=== PATIENT | female | born 1980 | race Caucasian/White ===

== ENCOUNTER 2016-12-27 17:23 | Emergency (ER) | payer OTHER ==
[2016-12-27 17:33] VITALS: TEMP 98.4
--- NOTE | 2016-12-27 17:45 | EDPHY ---
H & P Stated Complaint: Abd pain, n/v off and on x 1 mo;neg w/u [facility] clinic Time Seen by Provider: 12/27/16 17:44 HPI/ROS: CHIEF COMPLAINT: Abdominal pain, nausea, vomiting HISTORY OF PRESENT ILLNESS: The patient presents to the ED with a chief complaint of severe abdominal pain and vomiting. The patient reportedly has a history of endometriosis. She has been dealing with intermittent severe abdominal pain for the past month. The patient is status post hysterectomy in 2010. The patient did have a pelvic ultrasound performed yesterday at her OB G[facility] office which demonstrated no evidence of a ovarian torsion but did demonstrate a small cyst. Given the patient's complaint of more generalized abdominal pain and diarrhea she was referred to the ED by her staff technologist for further evaluation of other sources of pain. The patient denies any recent antibiotic use. The patient does have a prior history of appendectomy when she was 10. The patient has no history of diverticulosis or diverticulitis. The patient complains of moderate to severe generalized abdominal pain. It is poorly localized. REVIEW OF SYSTEMS: A comprehensive 10 point review of systems is otherwise negative aside from elements mentioned in the history of present illness. Source: Patient Exam Limitations: No limitations - Personal History LMP (Females 10-55): Hysterectomy Current Tetanus Diphtheria and Acellular Pertussis (TDAP): Yes - Medical/Surgical History Hx Asthma: No Hx Chronic Respiratory Disease: No Hx Diabetes: No Hx Cardiac Disease: No Hx Renal Disease: No Hx Cirrhosis: No Hx Alcoholism: No Hx HIV/AIDS: No Hx Splenectomy or Spleen Trauma: No Other PMH: hysterecomy, appendectomy. endometriosis - Social History Smoking Status: Never smoked - Physical Exam Exam: General Appearance: Alert, mild discomfort secondary to pain Eyes: Pupils equal and round no pallor or injection ENT, Mouth: Mucous membranes moist Respiratory: There are no retractions, lungs are clear to auscultation Cardiovascular: Regular rate and rhythm Gastrointestinal: Generalized abdominal tenderness, no peritoneal signs, normal bowel sounds Neurological: A&O, normal motor function, normal sensory exam, normal cranial nerves Skin: Warm and dry, no rashes Musculoskeletal: Neck is supple nontender Extremities: symmetrical, full range of motion Constitutional: Initial Vital Signs Temperature (C) 36.9 C 12/27/16 17:25 Heart Rate 86 12/27/16 17:25 Respiratory Rate 18 12/27/16 17:25 Blood Pressure 130/73 H 12/27/16 17:25 O2 Sat (%) 98 12/27/16 17:25 O2 Delivery Mode Room Air Allergies/Adverse Reactions: hydromorphone [From Dilaudid] Allergy (Mild, Verified 12/27/16 17:33) rash/itch Home Medications: Medication Instructions Recorded Divalproex ER [Depakote ER 250 MG 250 mg PO DAILY 12/27/16 (*)] celeCOXIB [Celebrex (*)] 12/27/16 oxyCODONE/APAP 5/325 [Percocet 1 tab PO 12/27/16 5/325 (*)] oxyCODONE/APAP 5/325 [Percocet 1 - 2 tab PO Q6-8PRN PRN #20 tab 12/27/16 5/325 (RX)] Medical Decision Making - Diagnostics Imaging Results: Imaging Impressions Abdomen CT 12/27/16 19:10 Impression: 1. Normal CT abdomen and pelvis with contrast enhancement. 2. No CT evidence of diverticulitis, abscess or bowel obstruction. Findings discussed with Raymond Holm M.D. at 20:22 hour, 12/27/2016. ED Course/Re-evaluation: The patient had an IV established. She received a L of normal saline. She has a normal CBC, normal serum chemistry, normal lipase and normal liver function test. The patient was taken for CT scan of the abdomen pelvis which demonstrates no evidence of an acute intra-abdominal process. The patient did received 2 rounds of IV morphine in the emergency department. The patient was able to produce a sample of diarrheal stool. At this point time I do feel the patient can be discharged home and follow up with her primary care provider. The patient has been instructed of the workup in the emergency department. There is no evidence of an obvious bowel abnormality to explain her pain. Differential Diagnosis: Differential diagnosis considered includes diverticulitis, perforation, obstruction, mesenteric adenitis, gastroenteritis, endometriosis - Data Points Laboratory Results: Laboratory Results 12/27/16 18:05 12/27/16 18:05 12/27/16 12/27/16 12/27/16 18:05 18:05 18:05 WBC 8.46 10^3/uL 10^3/uL (3.80-9.50) RBC 4.38 10^6/uL 10^6/uL (4.18-5.33) Hgb 14.5 g/dL g/dL (12.6-16.3) Hct 41.5 % % (38.0-47.0) MCV 94.7 fL fL (81.5-99.8) MCH 33.1 pg pg (27.9-34.1) MCHC 34.9 g/dL g/dL (32.4-36.7) RDW 12.2 % % (11.5-15.2) Plt Count 249 10^3/uL 10^3/uL (150-400) MPV 10.4 fL fL (8.7-11.7) Neut % (Auto) 60.2 % % (39.3-74.2) Lymph % (Auto) 23.8 % % (15.0-45.0) [place] % (Auto) 13.8 % H % (4.5-13.0) Eos % (Auto) 1.1 % % (0.6-7.6) Baso % (Auto) 0.5 % % (0.3-1.7) Nucleat RBC Rel Count 0.0 % % (0.0-0.2) Absolute Neuts (auto) 5.10 10^3/uL 10^3/uL (1.70-6.50) Absolute Lymphs (auto) 2.01 10^3/uL 10^3/uL (1.00-3.00) Absolute Monos (auto) 1.17 10^3/uL H 10^3/uL (0.30-0.80) Absolute Eos (auto) 0.09 10^3/uL 10^3/uL (0.03-0.40) Absolute Basos (auto) 0.04 10^3/uL 10^3/uL (0.02-0.10) Absolute Nucleated RBC 0.00 10^3/uL 10^3/uL (0-0.01) Immature Gran % 0.6 % % (0.0-1.1) Immature Gran # 0.05 10^3/uL 10^3/uL (0.00-0.10) Sodium 137 mEq/L mEq/L (134-144) Potassium 3.9 mEq/L mEq/L (3.5-5.2) Chloride 103 mEq/L mEq/L (97-110) Carbon Dioxide 23 mEq/l mEq/l (22-31) Anion Gap 11 mEq/L mEq/L (8-16) BUN 13 mg/dL mg/dL (7-23) Creatinine 0.8 mg/dL mg/dL (0.6-1.0) Estimated GFR > 60 Glucose 110 mg/dL H mg/dL (70-100) Calcium 9.8 mg/dL mg/dL (8.5-10.4) Total Bilirubin 0.5 mg/dL mg/dL (0.1-1.4) Conjugated Bilirubin 0.4 mg/dL mg/dL (0.0-0.5) Unconjugated Bilirubin 0.1 mg/dL mg/dL (0.0-1.1) AST 21 IU/L IU/L (14-46) ALT 22 IU/L IU/L (9-52) Alkaline Phosphatase 42 IU/L IU/L (38-126) Total Protein 7.1 g/dL g/dL (6.3-8.2) Albumin 4.2 g/dL g/dL (3.5-5.0) Lipase 164.0 IU/L IU/L (23-300) Beta HCG, Qual NEGATIVE Medications Given: Discontinued Medications Sodium Chloride (Ns) 1,000 mls @ 0 mls/hr IV ONCE ONE; Wide Open PRN Reason: Protocol Stop: 12/27/16 18:13 Last Admin: 12/27/16 18:20 Dose: 1,000 mls Morphine Sulfate (Morphine) 4 mg IVP EDNOW ONE Stop: 12/27/16 18:12 Last Admin: 12/27/16 18:20 Dose: 4 mg Morphine Sulfate (Morphine) 6 mg IVP EDNOW ONE Stop: 12/27/16 19:25 Last Admin: 12/27/16 19:30 Dose: 6 mg Departure - Departure Disposition: Home, Routine, Self-Care Clinical Impression: Abdominal pain Condition: Good Instructions: Abdominal Pain (ED) Additional Instructions: 1. Please return to the emergency department for any markedly worsening symptoms, fever or other concerns. 2. Please schedule a follow-up appointment with your regular staff technologist for consideration of additional workup of possible endometriosis. 3. Your CT scan demonstrate no evidence of obvious pathology. 4. Continue Celebrex as needed for pain. Percocet as needed for severe pain Referrals: Gayle Segura MD [Medical Doctor] - As per Instructions
[2016-12-27] MEDS ORDERED: NS 1,000 ML IV ONE (18:12)
[2016-12-27 18:23] VITALS: O2SAT 96
[2016-12-27 18:29] LABS: % IMMATURE GRANULYOCYTES 0.6 % (0.0-1.1); ABSOLUTE IMMATURE GRANULOCYTES 0.05 10^3/uL (0.00-0.10); ADD DIFF? NO; ADD MORPH? NO; ADD SCAN? NO; ATYPICAL LYMPHOCYTE FLAG 10 (0-99); FRAGMENT RBC FLAG 0 (0-99); HEMATOCRIT 41.5 % (38.0-47.0); HEMOGLOBIN 14.5 g/dL (12.6-16.3); LEFT SHIFT FLG 0 (0-99); LIPEMIA HEMOLYSIS FLAG 90 (0-99); MEAN CELL HEMOGLOBIN 33.1 pg (27.9-34.1); MEAN CELL HEMOGLOBIN CONCENTR. 34.9 g/dL (32.4-36.7); MEAN CELL VOLUME 94.7 fL (81.5-99.8); MEAN PLATELET VOLUME 10.4 fL (8.7-11.7); PLATELET CLUMPS FLAG 0 (0-99); PLATELET COUNT 249 10^3/uL (150-400); RED BLOOD CELL COUNT 4.38 10^6/uL (4.18-5.33); RED CELL DISTRIBUTION WIDTH 12.2 % (11.5-15.2)
[2016-12-27 18:34] LABS: ALANINE AMINOTRANSFERASE 22 IU/L (9-52); ALBUMIN 4.2 g/dL (3.5-5.0); ALKALINE PHOSPHATASE 42 IU/L (38-126); ANION GAP 11 mEq/L (8-16); ASPARTATE AMINOTRANSFERASE 21 IU/L (14-46); BILIRUBIN,TOTAL 0.5 mg/dL (0.1-1.4); BILIRUBIN-CONJUGATED 0.4 mg/dL (0.0-0.5); BILIRUBIN-UNCONJUGATED 0.1 mg/dL (0.0-1.1); CALCIUM 9.8 mg/dL (8.5-10.4); CARBON DIOXIDE 23 mEq/l (22-31); CHLORIDE 103 mEq/L (97-110); CREATININE 0.8 mg/dL (0.6-1.0); GLOMERULAR FILTRATION RATE > 60; GLUCOSE 110 mg/dL (70-100); POTASSIUM 3.9 mEq/L (3.5-5.2); SODIUM 137 mEq/L (134-144); TOTAL PROTEIN 7.1 g/dL (6.3-8.2)
[2016-12-27] MEDS ORDERED: IOPAMIDOL (ISOVUE-300) 100 ML BTL ONE (19:14)
[2016-12-27] MEDS ORDERED: OXYCODONE/APAP 5/325MG PREPACK#4 BTL TAKEHOME ONE (20:55)
[2016-12-27 21:10] VITALS: BP 109/61; PULSE 64; RESP 16
== END 2016-12-27 21:10 | disposition home or self-care (01) ==
DX: R10.84 Generalized abdominal pain (principal); Z90.49 Acquired absence of other specified parts of digestive tract; Z90.710 Acquired absence of both cervix and uterus
CPT/HCPCS: 96374; Q9967

== ENCOUNTER 2017-01-01 09:40 | Emergency (ER) | payer OTHER ==
[2017-01-01 10:14] LABS: % IMMATURE GRANULYOCYTES 0.7 % (0.0-1.1); ABSOLUTE IMMATURE GRANULOCYTES 0.05 10^3/uL (0.00-0.10); ADD DIFF? NO; ADD MORPH? NO; ADD SCAN? NO; ATYPICAL LYMPHOCYTE FLAG 0 (0-99); FRAGMENT RBC FLAG 0 (0-99); HEMATOCRIT 40.5 % (38.0-47.0); HEMOGLOBIN 14.2 g/dL (12.6-16.3); LEFT SHIFT FLG 0 (0-99); LIPEMIA HEMOLYSIS FLAG 90 (0-99); MEAN CELL HEMOGLOBIN 33.3 pg (27.9-34.1); MEAN CELL HEMOGLOBIN CONCENTR. 35.1 g/dL (32.4-36.7); MEAN CELL VOLUME 94.8 fL (81.5-99.8); MEAN PLATELET VOLUME 10.1 fL (8.7-11.7); PLATELET CLUMPS FLAG 0 (0-99); PLATELET COUNT 226 10^3/uL (150-400); RED BLOOD CELL COUNT 4.27 10^6/uL (4.18-5.33); RED CELL DISTRIBUTION WIDTH 12.2 % (11.5-15.2)
[2017-01-01] MEDS ORDERED: NS 1,000 ML IV ONE (10:19)
[2017-01-01] MEDS ORDERED: ONDANSETRON 4 MG/2 ML VIAL IVP ONE ×2 (10:19→12:07)
[2017-01-01 10:36] LABS: ANION GAP 13 mEq/L (8-16); CALCIUM 9.6 mg/dL (8.5-10.4); CARBON DIOXIDE 21 mEq/l (22-31); CHLORIDE 104 mEq/L (97-110); CREATININE 0.8 mg/dL (0.6-1.0); GLOMERULAR FILTRATION RATE > 60; GLUCOSE 102 mg/dL (70-100); POTASSIUM 4.2 mEq/L (3.5-5.2); SODIUM 138 mEq/L (134-144)
[2017-01-01] MEDS ORDERED: KETOROLAC 15 MG/1 ML SDV IVP ONE (10:48)
[2017-01-01 11:55] LABS: COLOR YELLOW; LEUKOCYTE ESTERASE,URINE NEGATIVE (NEGATIVE); NITRITE,URINE NEGATIVE (NEGATIVE)
[2017-01-01] MEDS ORDERED: LORazepam 2 MG/ML INJ IVP ONE (11:57)
[2017-01-01] MEDS ORDERED: ONDANSETRON 4 MG/2 ML VIAL ONE (12:00)
--- NOTE | 2017-01-01 12:21 | EDPHY ---
H & P Stated Complaint: vomiting since yesterday, because of "back pain". Time Seen by Provider: 01/01/17 09:47 HPI/ROS: CHIEF COMPLAINT: Acute on chronic abdominal pain HISTORY OF PRESENT ILLNESS: 36-year-old female presents emergency department with acute on chronic lower abdominal pain. Patient has been diagnosed with endometriosis, she saw her OBGYN 1 week ago and had a normal ultrasound, her OBGYN wanted to start her on Lupron, the patient did not want to do this due to the side effects she was concerned about. She was seen in the emergency department 5 days ago and had a normal CAT scan. She denies urinary frequency, urgency or dysuria, no hematuria. She denies fevers or chills. Patient reports this pain is the same as her normal endometriosis pain. She states she was prescribed Percocet when she was here 5 days ago which caused constipation. Patient is requesting a referral to an endometriosis specialist. Patient reports her pain gets so bad she vomits. REVIEW OF SYSTEMS: A comprehensive 10 point review of systems is otherwise negative aside from elements mentioned in the history of present illness. Source: Patient Exam Limitations: No limitations - Personal History LMP (Females 10-55): Hysterectomy Current Tetanus Diphtheria and Acellular Pertussis (TDAP): Yes - Medical/Surgical History Hx Asthma: No Hx Chronic Respiratory Disease: No Hx Diabetes: No Hx Cardiac Disease: No Hx Renal Disease: No Hx Cirrhosis: No Hx Alcoholism: No Hx HIV/AIDS: No Hx Splenectomy or Spleen Trauma: No Other PMH: hysterecomy, appendectomy. endometriosis - Social History Smoking Status: Never smoked - Physical Exam Exam: Physical Exam Gen: Alert and Oriented, tearful HEENT: PERRL, moist mucous membranes NECK: no meningismus CV: regular rate and regular rhythm PULM: CTAB, no wheezes ABDOMEN: soft, diffuse lower abdominal tenderness, no peritoneal signs, no mass , BS present BACK: No CVA tenderness NEURO: Neurologically grossly intact EXTREMITIES: normal appearing SKIN: no rash or break in skin on exposed skin PSYCH: answers questions appropriately, tearful. Constitutional: Initial Vital Signs Temperature (C) 36.7 C 01/01/17 09:43 Heart Rate 88 01/01/17 09:43 Respiratory Rate 18 01/01/17 09:43 Blood Pressure 120/89 H 01/01/17 09:43 O2 Sat (%) 96 01/01/17 09:43 O2 Delivery Mode Room Air Allergies/Adverse Reactions: hydromorphone [From Dilaudid] Allergy (Mild, Verified 12/27/16 17:33) rash/itch Home Medications: Medication Instructions Recorded Divalproex ER [Depakote ER 250 MG 250 mg PO DAILY 12/27/16 (*)] celeCOXIB [Celebrex (*)] 12/27/16 oxyCODONE/APAP 5/325 [Percocet 1 tab PO 12/27/16 5/325 (*)] oxyCODONE/APAP 5/325 [Percocet 1 - 2 tab PO Q6-8PRN PRN #20 tab 12/27/16 5/325 (RX)] Hydrocodone/APAP 5/325 [Jerome 1 tab PO Q4H PRN #10 tab 01/01/17 5/325] Ondansetron Odt [Zofran Odt] 4 mg PO Q6-8PRN PRN #10 tab 01/01/17 Medical Decision Making ED Course/Re-evaluation: IV established, CBC, chemistry panel and urinalysis obtained. Patient is given IV morphine, Toradol and Zofran. Her pain is controlled in the emergency department, she is discharged home with a prescription for Jerome and Zofran. I have referred her to the OBGYN on-call to establish care. The patient has no peritoneal signs, her white blood cell count is not elevated , she is nontoxic appearing with normal vital signs. I reviewed her past medical records, she has had a recent ultrasound and CT scan and the last week which were normal. Patient is given return precautions for any worsening symptoms, new symptoms or concerns. Differential Diagnosis: The differential diagnosis for the patient's abdominal pain included but was not limited to ovarian cyst, pelvic inflammatory disease, ovarian torsion, urinary tract infection, endometriosis, cholecystitis, and appendicitis. - Data Points Laboratory Results: Laboratory Results 01/01/17 10:06 01/01/17 10:06 01/01/17 01/01/17 01/01/17 11:45 11:45 10:06 WBC RBC Hgb Hct MCV MCH MCHC RDW Plt Count MPV Neut % (Auto) Lymph % (Auto) [place] % (Auto) Eos % (Auto) Baso % (Auto) Nucleat RBC Rel Count Absolute Neuts (auto) Absolute Lymphs (auto) Absolute Monos (auto) Absolute Eos (auto) Absolute Basos (auto) Absolute Nucleated RBC Immature Gran % Immature Gran # Sodium 138 mEq/L mEq/L (134-144) Potassium 4.2 mEq/L mEq/L (3.5-5.2) Chloride 104 mEq/L mEq/L (97-110) Carbon Dioxide 21 mEq/l L mEq/l (22-31) Anion Gap 13 mEq/L mEq/L (8-16) BUN 17 mg/dL mg/dL (7-23) Creatinine 0.8 mg/dL mg/dL (0.6-1.0) Estimated GFR > 60 Glucose 102 mg/dL H mg/dL (70-100) Calcium 9.6 mg/dL mg/dL (8.5-10.4) Urine Color YELLOW Urine Appearance HAZY Urine pH 6.0 (5.0-7.5) Ur Specific [place] 1.013 (1.002-1.030) Urine Protein NEGATIVE (NEGATIVE) Urine Ketones 1+ H (NEGATIVE) Urine Blood NEGATIVE (NEGATIVE) Urine Nitrate NEGATIVE (NEGATIVE) Urine Bilirubin NEGATIVE (NEGATIVE) Urine Urobilinogen NEGATIVE EU EU (0.2-1.0) Ur Leukocyte Esterase NEGATIVE (NEGATIVE) Urine Glucose NEGATIVE (NEGATIVE) Urine Test NEGATIVE 01/01/17 10:06 WBC 7.50 10^3/uL 10^3/uL (3.80-9.50) RBC 4.27 10^6/uL 10^6/uL (4.18-5.33) Hgb 14.2 g/dL g/dL (12.6-16.3) Hct 40.5 % % (38.0-47.0) MCV 94.8 fL fL (81.5-99.8) MCH 33.3 pg pg (27.9-34.1) MCHC 35.1 g/dL g/dL (32.4-36.7) RDW 12.2 % % (11.5-15.2) Plt Count 226 10^3/uL 10^3/uL (150-400) MPV 10.1 fL fL (8.7-11.7) Neut % (Auto) 64.1 % % (39.3-74.2) Lymph % (Auto) 22.0 % % (15.0-45.0) [place] % (Auto) 12.4 % % (4.5-13.0) Eos % (Auto) 0.4 % L % (0.6-7.6) Baso % (Auto) 0.4 % % (0.3-1.7) Nucleat RBC Rel Count 0.0 % % (0.0-0.2) Absolute Neuts (auto) 4.81 10^3/uL 10^3/uL (1.70-6.50) Absolute Lymphs (auto) 1.65 10^3/uL 10^3/uL (1.00-3.00) Absolute Monos (auto) 0.93 10^3/uL H 10^3/uL (0.30-0.80) Absolute Eos (auto) 0.03 10^3/uL 10^3/uL (0.03-0.40) Absolute Basos (auto) 0.03 10^3/uL 10^3/uL (0.02-0.10) Absolute Nucleated RBC 0.00 10^3/uL 10^3/uL (0-0.01) Immature Gran % 0.7 % % (0.0-1.1) Immature Gran # 0.05 10^3/uL 10^3/uL (0.00-0.10) Sodium Potassium Chloride Carbon Dioxide Anion Gap BUN Creatinine Estimated GFR Glucose Calcium Urine Color Urine Appearance Urine pH Ur Specific [place] Urine Protein Urine Ketones Urine Blood Urine Nitrate Urine Bilirubin Urine Urobilinogen Ur Leukocyte Esterase Urine Glucose Urine Test Medications Given: Discontinued Medications Sodium Chloride (Ns) 1,000 mls @ 0 mls/hr IV ONCE ONE; Wide Open PRN Reason: Protocol Stop: 01/01/17 10:20 Last Admin: 01/01/17 10:15 Dose: 1,000 mls Ketorolac Tromethamine (Toradol) 15 mg IVP EDNOW ONE Stop: 01/01/17 10:49 Last Admin: 01/01/17 11:00 Dose: 15 mg Lorazepam (Ativan Injection) 1 mg IVP EDNOW ONE Stop: 01/01/17 11:58 Last Admin: 01/01/17 12:08 Dose: 1 mg Morphine Sulfate (Morphine) 4 mg IVP EDNOW ONE Stop: 01/01/17 10:55 Last Admin: 01/01/17 11:05 Dose: 4 mg Morphine Sulfate (Morphine) 4 mg IVP EDNOW ONE Stop: 01/01/17 12:08 Last Admin: 01/01/17 12:08 Dose: 4 mg Ondansetron HCl (Zofran) 4 mg IVP EDNOW ONE Stop: 01/01/17 10:20 Last Admin: 01/01/17 10:20 Dose: 4 mg Ondansetron HCl (Zofran) 4 mg IVP EDNOW ONE Stop: 01/01/17 12:08 Last Admin: 01/01/17 12:08 Dose: 4 mg Departure - Departure Disposition: Home, Routine, Self-Care Clinical Impression: Abdominal pain Qualifiers: Abdominal location: lower abdomen, unspecified Qualified Code(s): R10.30 - Lower abdominal pain, unspecified Condition: Good Instructions: Endometriosis (ED), Abdominal Pain (ED) Additional Instructions: Take your Celebrex as prescribed by your OBGYN, take Jerome for severe pain. Take Zofran as needed for nausea. Follow up with the OBGYN listed at 1st available appointment. Return to the emergency department for any new symptoms or concerns. Referrals: Kimber Chamorro MD [Medical Doctor] - As per Instructions (OBGYN on-call) Prescriptions: Hydrocodone/APAP 5/325 [Jerome 5/325] 1 tab PO Q4H PRN #10 tab PRN Reason: Pain, Moderate Ondansetron Odt [Zofran Odt] 4 mg PO Q6-8PRN PRN #10 tab PRN Reason: Nausea/Vomiting, Can'T Take Po
[2017-01-01 12:34] VITALS: BP 127/69; PULSE 67; RESP 14; TEMP 98.4; O2SAT 98
== END 2017-01-01 12:50 | disposition home or self-care (01) ==
DX: R10.30 Lower abdominal pain, unspecified (principal); E86.9 Volume depletion, unspecified; Z90.710 Acquired absence of both cervix and uterus
CPT/HCPCS: 96374; J1885; J2060; J2405

== ENCOUNTER 2017-01-01 23:35 | Emergency (ER) | payer OTHER ==
[2017-01-01 23:40] VITALS: RESP 16
[2017-01-01] MEDS ORDERED: ONDANSETRON 4 MG/2 ML VIAL IVP ONE (23:43)
[2017-01-01] MEDS ORDERED: NS 1,000 ML IV ONE (23:43)
[2017-01-01] MEDS ORDERED: PROMETHAZINE HCL 25 MG/ML INJ IVP ONE (23:57)
--- NOTE | 2017-01-02 | EDPHY ---
H & P Stated Complaint: pain, n/v HPI/ROS: HPI CHIEF COMPLAINT: Abdominal pain, nausea, vomiting seen here earlier HISTORY OF PRESENT ILLNESS: This patient 36-year-old female with acute on chronic abdominal pain, history of endometriosis, was seen here earlier in the emergency room with lower abdominal pain is consistent with previous history of endometriosis. She had recent CAT scan 5 days prior that was normal. Recent ultrasound reported as normal. She presents back to the emergency room for persistent nausea vomiting. She took Zofran at home but this did not help. She states she is unable to tolerate p.o. and keep p.o. fluids down so she decided come back to the emergency room. She tells me her pain is about the same. Lower pelvic regions. Same is rolled endometriosis pain. She is due to see a specialist tomorrow for endometriosis. Here in emergency room I did evaluate her. She is nauseous. She has mild tenderness palpation lower abdomen. Past Medical History: Endometriosis Past Surgical History: Hysterectomy, appendectomy, endometriosis Social History: Denies daily use of drugs alcohol tobacco products Family History: Noncontributory ROS REVIEW OF SYSTEMS: A comprehensive 10 point review of systems is otherwise negative aside from elements mentioned in the history of present illness. Exam Constitutional appears well nontoxic triage nursing summary reviewed, vital signs reviewed, awake/alert. Eyes normal conjunctivae and sclera, EOMI, PERRLA. HENT normal inspection, atraumatic, moist mucus membranes, no epistaxis, neck supple/ no meningismus, no raccoon eyes. Respiratory clear to auscultation bilaterally, normal breath sounds, no respiratory distress, no wheezing. Cardiovascular rate normal, regular rhythm, no murmur, no edema, distal pulses normal. Gastrointestinal soft, mild tender palpation suprapubic and bilateral adnexal lower abdomen, no rebound, no guarding, normal bowel sounds, no distension, no pulsatile mass. Genitourinary no CVA tenderness. Musculoskeletal no midline vertebral tenderness, full range of motion, no calf swelling, no tenderness of extremities, no meningismus, good pulses, neurovascularly intact. Skin pink, warm, & dry, no rash, skin atraumatic. Neurologic awake, alert and oriented x 3, AAOx3, moves all 4 extremities equally, motor intact, sensory intact, CN II-XII intact, normal cerebellar, normal vision, normal speech. Psychiatric normal mood/affect. Heme/Lymph/Immune no lymphadenopathy. Differential Diagnosis: Includes but is not limited to in a particular order, acute on chronic abdominal pain, endometriosis, UTI, colitis, diverticulitis, perforated bowel Medical Decision Making: Plan for this patient IV hydration, IV Phenergan for nausea, IV morphine for pain control. Check blood work repeat, I offered patient imaging including ultrasound and CT however patient has declined she does not want any imaging here in the emergency room. She feels that she had recent normal imaging and that this is normal endometriosis pain for. She would like her nausea control. Re-evaluation: 0233AM: Re-examination at this time this patient is resting comfortably no acute distress. Abdomen is soft nontender. She is not vomiting. She feels much better after IV Phenergan and morphine. She is requesting discharge home. She is requesting Phenergan suppositories. I did review her blood work. No acute change. Unremarkable. Recommend close follow-up with her specialist her OBGYN for endometriosis. She understands return emergency room immediately if he develops worsening symptoms includes worsening abdominal pain, fever, vomiting. Source: Patient - Personal History LMP (Females 10-55): Hysterectomy Current Tetanus/Diphtheria Vaccine: Yes Current Tetanus Diphtheria and Acellular Pertussis (TDAP): Yes - Medical/Surgical History Hx Asthma: No Hx Chronic Respiratory Disease: No Hx Diabetes: No Hx Cardiac Disease: No Hx Renal Disease: No Hx Cirrhosis: No Hx Alcoholism: No Hx HIV/AIDS: No Hx Splenectomy or Spleen Trauma: No Other PMH: hysterecomy, appendectomy. endometriosis - Social History Smoking Status: Never smoked Constitutional: Initial Vital Signs Temperature (C) 36.7 C 01/01/17 23:39 Heart Rate 83 01/01/17 23:39 Respiratory Rate 16 01/01/17 23:39 Blood Pressure 132/84 H 01/01/17 23:39 O2 Sat (%) 98 01/01/17 23:39 O2 Delivery Mode Room Air Allergies/Adverse Reactions: hydromorphone [From Dilaudid] Allergy (Mild, Verified 01/01/17 23:39) rash/itch Home Medications: Medication Instructions Recorded Divalproex ER [Depakote ER 250 MG 250 mg PO DAILY 12/27/16 (*)] celeCOXIB [Celebrex (*)] 12/27/16 oxyCODONE/APAP 5/325 [Percocet 1 tab PO 12/27/16 5/325 (*)] oxyCODONE/APAP 5/325 [Percocet 1 - 2 tab PO Q6-8PRN PRN #20 tab 12/27/16 5/325 (RX)] Hydrocodone/APAP 5/325 [[place] 1 tab PO Q4H PRN #10 tab 01/01/17 5/325] Ondansetron Odt [Zofran Odt] 4 mg PO Q6-8PRN PRN #10 tab 01/01/17 Promethazine 25Mg Supp Prepk#4 25 mg NE BID #1 bottle 01/02/17 [Phenergan 25Mg Supp Prepack#4] Promethazine HCl [Phenergan 25 mg RC BID #5 suppr 01/02/17 Rectal] Medical Decision Making - Data Points Laboratory Results: Laboratory Results 01/02/17 00:50 01/02/17 00:50 01/02/17 01/02/17 01/02/17 01:55 00:50 00:50 WBC RBC Hgb Hct MCV MCH MCHC RDW Plt Count MPV Neut % (Auto) Lymph % (Auto) [place] % (Auto) Eos % (Auto) Baso % (Auto) Nucleat RBC Rel Count Absolute Neuts (auto) Absolute Lymphs (auto) Absolute Monos (auto) Absolute Eos (auto) Absolute Basos (auto) Absolute Nucleated RBC Immature Gran % Immature Gran # Sodium 137 mEq/L mEq/L (134-144) Potassium 3.5 mEq/L mEq/L (3.5-5.2) Chloride 112 mEq/L H mEq/L (97-110) Carbon Dioxide 18 mEq/l L mEq/l (22-31) Anion Gap 7 mEq/L L mEq/L (8-16) BUN 14 mg/dL mg/dL (7-23) Creatinine 0.7 mg/dL mg/dL (0.6-1.0) Estimated GFR > 60 Glucose 80 mg/dL mg/dL (70-100) Calcium 7.8 mg/dL L D mg/dL (8.5-10.4) Total Bilirubin 0.6 mg/dL mg/dL (0.1-1.4) Conjugated Bilirubin 0.3 mg/dL mg/dL (0.0-0.5) Unconjugated Bilirubin 0.3 mg/dL mg/dL (0.0-1.1) AST 14 IU/L IU/L (14-46) ALT 21 IU/L IU/L (9-52) Alkaline Phosphatase 31 IU/L L IU/L (38-126) Total Protein 5.5 g/dL L g/dL (6.3-8.2) Albumin 3.1 g/dL L g/dL (3.5-5.0) Lipase 39.0 IU/L IU/L (23-300) Beta HCG, Qual NEGATIVE Urine Color YELLOW Urine Appearance HAZY Urine pH 6.0 (5.0-7.5) Ur Specific [place] 1.024 (1.002-1.030) Urine Protein NEGATIVE (NEGATIVE) Urine Ketones 2+ H (NEGATIVE) Urine Blood NEGATIVE (NEGATIVE) Urine Nitrate NEGATIVE (NEGATIVE) Urine Bilirubin NEGATIVE (NEGATIVE) Urine Urobilinogen NEGATIVE EU EU (0.2-1.0) Ur Leukocyte Esterase NEGATIVE (NEGATIVE) Urine Glucose NEGATIVE (NEGATIVE) 01/02/17 00:50 WBC 7.26 10^3/uL 10^3/uL (3.80-9.50) RBC 3.35 10^6/uL L 10^6/uL (4.18-5.33) Hgb 11.3 g/dL L g/dL (12.6-16.3) Hct 32.6 % L % (38.0-47.0) MCV 97.3 fL fL (81.5-99.8) MCH 33.7 pg pg (27.9-34.1) MCHC 34.7 g/dL g/dL (32.4-36.7) RDW 12.1 % % (11.5-15.2) Plt Count 160 10^3/uL D 10^3/uL (150-400) MPV 10.6 fL fL (8.7-11.7) Neut % (Auto) 71.9 % % (39.3-74.2) Lymph % (Auto) 15.8 % % (15.0-45.0) [place] % (Auto) 11.0 % % (4.5-13.0) Eos % (Auto) 0.3 % L % (0.6-7.6) Baso % (Auto) 0.6 % % (0.3-1.7) Nucleat RBC Rel Count 0.0 % % (0.0-0.2) Absolute Neuts (auto) 5.22 10^3/uL 10^3/uL (1.70-6.50) Absolute Lymphs (auto) 1.15 10^3/uL 10^3/uL (1.00-3.00) Absolute Monos (auto) 0.80 10^3/uL 10^3/uL (0.30-0.80) Absolute Eos (auto) 0.02 10^3/uL L 10^3/uL (0.03-0.40) Absolute Basos (auto) 0.04 10^3/uL 10^3/uL (0.02-0.10) Absolute Nucleated RBC 0.00 10^3/uL 10^3/uL (0-0.01) Immature Gran % 0.4 % % (0.0-1.1) Immature Gran # 0.03 10^3/uL 10^3/uL (0.00-0.10) Sodium Potassium Chloride Carbon Dioxide Anion Gap BUN Creatinine Estimated GFR Glucose Calcium Total Bilirubin Conjugated Bilirubin Unconjugated Bilirubin AST ALT Alkaline Phosphatase Total Protein Albumin Lipase Beta HCG, Qual Urine Color Urine Appearance Urine pH Ur Specific [place] Urine Protein Urine Ketones Urine Blood Urine Nitrate Urine Bilirubin Urine Urobilinogen Ur Leukocyte Esterase Urine Glucose Medications Given: Discontinued Medications Sodium Chloride (Ns) 1,000 mls @ 0 mls/hr IV ONCE ONE; Wide Open PRN Reason: Protocol Stop: 01/01/17 23:44 Last Admin: 01/02/17 00:15 Dose: 1,000 mls Morphine Sulfate (Morphine) 6 mg IVP EDNOW ONE Stop: 01/02/17 00:13 Last Admin: 01/02/17 00:30 Dose: 6 mg Morphine Sulfate (Morphine) 4 mg IVP EDNOW ONE Stop: 01/02/17 02:02 Last Admin: 01/02/17 02:10 Dose: 4 mg Ondansetron HCl (Zofran) 4 mg IVP EDNOW ONE Stop: 01/01/17 23:44 Last Admin: 01/02/17 00:26 Dose: Not Given Promethazine HCl (Phenergan) 12.5 mg IVP EDNOW ONE Stop: 01/01/17 23:58 Last Admin: 01/02/17 00:20 Dose: 12.5 mg Departure - Departure Disposition: Home, Routine, Self-Care Clinical Impression: Abdominal pain Qualifiers: Abdominal location: generalized Qualified Code(s): R10.84 - Generalized abdominal pain Condition: Good Instructions: Acute Abdominal Pain (ED) Additional Instructions: 1. Please follow up with her primary care doctor or specialist. 2. Return emergency room if develops worsening abdominal pain fever vomiting. Referrals: Patient,NotPresent [Unknown] - As per Instructions Prescriptions: Promethazine 25Mg Supp Prepk#4 [Phenergan 25Mg Supp Prepack#4] 25 mg NE BID #1 bottle Promethazine HCl [Phenergan Rectal] 25 mg RC BID #5 suppr
[2017-01-02 01:04] LABS: % IMMATURE GRANULYOCYTES 0.4 % (0.0-1.1); ABSOLUTE IMMATURE GRANULOCYTES 0.03 10^3/uL (0.00-0.10); ADD DIFF? NO; ADD MORPH? NO; ADD SCAN? NO; ATYPICAL LYMPHOCYTE FLAG 0 (0-99); FRAGMENT RBC FLAG 0 (0-99); HEMATOCRIT 32.6 % (38.0-47.0); HEMOGLOBIN 11.3 g/dL (12.6-16.3); LEFT SHIFT FLG 0 (0-99); LIPEMIA HEMOLYSIS FLAG 90 (0-99); MEAN CELL HEMOGLOBIN 33.7 pg (27.9-34.1); MEAN CELL HEMOGLOBIN CONCENTR. 34.7 g/dL (32.4-36.7); MEAN CELL VOLUME 97.3 fL (81.5-99.8); MEAN PLATELET VOLUME 10.6 fL (8.7-11.7); PLATELET CLUMPS FLAG 0 (0-99); PLATELET COUNT 160 10^3/uL (150-400); RED BLOOD CELL COUNT 3.35 10^6/uL (4.18-5.33); RED CELL DISTRIBUTION WIDTH 12.1 % (11.5-15.2)
[2017-01-02 01:20] LABS: ALANINE AMINOTRANSFERASE 21 IU/L (9-52); ALBUMIN 3.1 g/dL (3.5-5.0); ALKALINE PHOSPHATASE 31 IU/L (38-126); ANION GAP 7 mEq/L (8-16); ASPARTATE AMINOTRANSFERASE 14 IU/L (14-46); BILIRUBIN,TOTAL 0.6 mg/dL (0.1-1.4); BILIRUBIN-CONJUGATED 0.3 mg/dL (0.0-0.5); BILIRUBIN-UNCONJUGATED 0.3 mg/dL (0.0-1.1); CALCIUM 7.8 mg/dL (8.5-10.4); CARBON DIOXIDE 18 mEq/l (22-31); CHLORIDE 112 mEq/L (97-110); CREATININE 0.7 mg/dL (0.6-1.0); GLOMERULAR FILTRATION RATE > 60; GLUCOSE 80 mg/dL (70-100); POTASSIUM 3.5 mEq/L (3.5-5.2); SODIUM 137 mEq/L (134-144); TOTAL PROTEIN 5.5 g/dL (6.3-8.2)
[2017-01-02 02:03] LABS: COLOR YELLOW; LEUKOCYTE ESTERASE,URINE NEGATIVE (NEGATIVE); NITRITE,URINE NEGATIVE (NEGATIVE)
[2017-01-02] MEDS ORDERED: PROMETHAZINE 25 MG PREPACK #4 BTL TAKEHOME ONE (02:51)
[2017-01-02] MEDS ORDERED: PROMETHAZINE 25MG SUPP PREPK#4 BTL TAKEHOME ONE (02:52)
[2017-01-02 03:24] VITALS: BP 102/52; PULSE 58; TEMP 98.4; O2SAT 96
== END 2017-01-02 03:15 | disposition home or self-care (01) ==
DX: R10.84 Generalized abdominal pain (principal); E86.9 Volume depletion, unspecified; Z90.49 Acquired absence of other specified parts of digestive tract; Z90.710 Acquired absence of both cervix and uterus
CPT/HCPCS: 96374; J2550

== ENCOUNTER 2017-01-31 06:24 | Day surgery (SDC) | payer OTHER ==
[2017-01-31] MEDS ORDERED: LIDOCAINE 1% 2 ML INJ ID PRN (06:48)
[2017-01-31] MEDS ORDERED: LR 1,000 ML IV ONE (06:48)
[2017-01-31] MEDS ORDERED: LIDOCAINE 1% 2 ML INJ ONE (06:50)
[2017-01-31] MEDS ORDERED: BUPIVACAINE 0.25% 30 ML SDV ONE (07:15)
[2017-01-31] MEDS: ONDANSETRON 4 MG/2 ML VIAL IVP PRN ×3 (07:25→11:25)
[2017-01-31] MEDS ORDERED: MIDAZOLAM 2 MG/2 ML VIAL IVP ONE (07:56)
--- NOTE | 2017-01-31 07:59 | PDANEPAE ---
ANE History of Present Illness laparascopy ANE Past Medical History - Cardiovascular History Hx Hypertension: No Hx Arrhythmias: No Hx Chest Pain: No Hx Coronary Artery / Peripheral Vascular Disease: No Hx CHF / Valvular Disease: No Hx Palpitations: No - Pulmonary History Hx COPD: No Hx Asthma/Reactive Airway Disease: No Hx Recent Upper Respiratory Infection: No Hx Oxygen in Use at Home: No Hx Sleep Apnea: No Sleep Apnea Screening Result - Last Documented: Negative - Neurologic History Hx Cerebrovascular Accident: No Hx Seizures: No Hx Dementia: No - Endocrine History Hx Diabetes: No - Renal History Hx Renal Disorders: Yes Renal History Comment: KIDNEY INFECTION 2015 - Liver History Hx Hepatic Disorders: No - Neurological & Psychiatric Hx Hx Neurological and Psychiatric Disorders: No - Cancer History Hx Cancer: No - Congenital Disorder History Hx Congenital Disorders: No - GI History Hx Gastrointestinal Disorders: No - Other Health History Other Health History: PELVIC PAIN. POSSIBLE ENDOMETRIOSIS - Chronic Pain History Chronic Pain: Yes (PELVIC REGION LT WORSE) - Surgical History Prior Surgeries: APPENDECTOMY. COLONOSCOPY. HYSTERECTOMY 2011. DX LAP ANE Review of Systems - Exercise capacity METS (RN): 5 METS ANE Patient History - Allergies Allergies/Adverse Reactions: hydromorphone [From Dilaudid] Allergy (Mild, Verified 01/01/17 23:39) rash/itch - Home Medications Home Medications: Divalproex ER [Depakote ER 250 MG (*)] 250 mg PO DAILY06 12/27/16 [Last Taken 05:30] celeCOXIB [Celebrex (*)] BID 12/27/16 [Last Taken 3 Days Ago] - NPO status NPO Since - Liquids (Date): 01/31/17 NPO Since - Liquids (Time): 05:30 NPO Since - Solids (Date): 01/30/17 NPO Since - Solids (Time): 18:00 - Anes Hx Anes Hx: no prior problems, post operative nausea - Smoking Hx Smoking Status: Never smoked ANE Labs/Vital Signs - Vital Signs Blood Pressure: 119/63 Heart Rate: 88 Respiratory Rate: 20 O2 Sat (%): 99 Height: 170.18 cm Weight: 68.039 kg ANE Physical Exam - Airway Mallampati Score: Class 2 Mouth exam: normal dental/mouth exam - Pulmonary Pulmonary: no respiratory distress - Cardiovascular Cardiovascular: regular rate and rhythym - ASA Status ASA Status: II ANE Anesthesia Plan Anesthesia Plan: general endotracheal anesthesia
[2017-01-31] MEDS ORDERED: ROCURONIUM 50 MG/5 ML VIAL ONE (08:03)
[2017-01-31] MEDS ORDERED: KETOROLAC 30 MG/1 ML SDV ONE (08:04)
[2017-01-31] MEDS ORDERED: ONDANSETRON 4 MG/2 ML VIAL ONE ×2 (08:04→11:22)
[2017-01-31] MEDS ORDERED: fentaNYL 100 MCG/2 ML INJ ONE (08:04)
[2017-01-31] MEDS ORDERED: DEXAMETHASONE 4 MG/ML VIAL ONE (08:04)
[2017-01-31] MEDS ORDERED: PROPOFOL 200 MG/20 ML VIAL ONE (08:04)
[2017-01-31] MEDS ORDERED: LIDOCAINE 2% 5 ML SDV ONE (08:04)
--- NOTE | 2017-01-31 08:13 | PDHPUP ---
History & Physical Update H&P update statement: This history and physical update is based on an assessment of the patient which was completed after admission or registration (within 24 hours), but prior to the surgery/procedure. H&P update: H&P reviewed & patient examined, no change in patient's condition since H&P completed
[2017-01-31] MEDS ORDERED: LR 500 ML IV PRN (08:45)
[2017-01-31] MEDS ORDERED: NALOXONE HCL 0.4 MG/ML INJ IVP PRN (08:45)
[2017-01-31] MEDS ORDERED: MEPERIDINE 25 MG/ML SYR IVP PRN (08:45)
[2017-01-31] MEDS ORDERED: SUGAMMADEX SODIUM 200 MG/2 ML VIAL IVP ONE (09:26)
--- NOTE | 2017-01-31 09:43 | POSTANESTH ---
Post Anesthetic Evaluation Cardiovascular Status: Normal, Stable Respiratory Status: Normal, Stable Level of Consciousness/Mental Status: Can Participate in Eval Pain Control: Adequate, Prn Tx Ordered Nausea/Vomiting Control: Adequate, Prn Tx Ordered Complications Possibly Related to Anesthesia: None Noted
--- NOTE | 2017-01-31 10:05 | POSTOPPROG ---
Post Op Note Date of Operation: 01/31/17 Surgeon: Gayle Segura Anesthesiologist: Sreedhar Wise Anesthesia: GET(General Endotracheal) Pre-op Diagnosis: pelvic pain , possible endometriosis Post-op Diagnosis: same Indication: pain Procedure: Dx L/S, bx of possible endo , STARR , fulgaration of endo Findings: peristineal wall defect , adhesive ds Inf/Abcess present in the surg proc area at time of surgery?: No EBL: Minimal Complications: none
[2017-01-31 10:25] VITALS: PULSE 84
[2017-01-31 10:48] VITALS: RESP 16; TEMP 98.2
[2017-01-31 11:01] VITALS: O2SAT 92
[2017-01-31 11:09] VITALS: BP 113/78
--- NOTE | 2017-01-31 14:37 | GOP ---
[f rep st] OPERATIVE REPORT DATE OF OPERATION: 01/31/2017 SURGEON: Gayle Segura MD ANESTHESIA: General endotracheal. ANESTHESIOLOGIST: Sreedhar Wise MD PREOPERATIVE DIAGNOSIS: 1. Chronic pelvic pain. 2. History of suspected endometriosis. 3. History of vaginal hysterectomy. POSTOPERATIVE DIAGNOSIS: PROCEDURE PERFORMED: Diagnostics laparoscopy, lysis of adhesions, fulguration of endometriosis, and biopsy. FINDINGS: There is scar tissue along the left lower quadrant. The ovary is somewhat attached to th e pelvic sidewall, and there is a strip of adipose tissue that follows along that ovary into where t he bladder is, causing the left ovary to be stuck against the pelvic wall. That peritoneal defect w as noted, slightly larger, and near the rectum in the left lower quadrant. Vaginal cuff is well hea led. Right ovary is normal and mobile, and there was no endometriosis or adhesions around the right ovary. There was a survey of the upper abdomen and no abnormalities noted, as well as the posterio r cul-de-sac where there was no noted abnormality. ESTIMATED BLOOD LOSS: Minimal. INDICATIONS: Patient is a 36-year-old and states that since her adolescent years she has had very severe dysmenorrhea and had a laparoscopy in 2006. She underwent laparoscopic-assisted vaginal hysterectomy in 2011 for ongoing pain, and pathology report was negative for adenomyosis or endomet riosis, but patient's pain resolved at that time. She was noted to have peritoneal defect, and ther e was suspicion from her previous surgeon that that is endometriosis. No biopsy or cautery was done of this area. The patient has done well since her surgery until the last 6 months where she has de veloped significant pain very similar to her previous pain, and she has undergone 2 ER visits to con trol the pain and then ultrasound that showed normal ovaries and no other abnormalities. Patient de sires diagnostic evaluation as well as treatment if possible at the time of surgery, and plans to un dergo diagnostic laparoscopy, possible fulguration of endometriosis, biopsy, and possible lysis of a dhesions. The patient is aware that this may not fix her pain and that she may have recurrent pelvi c pain at some point. She has also been consented to having her ovaries removed as well if necessar y. Also, of note, patient has been offered Lupron therapy for medical therapy and states that she d eclines that, as well as other hormonal or nonhormonal options. DESCRIPTION OF PROCEDURE: With informed consent signed, patient was taken to the operating room and placed under general anesthesia. Placed in a low dorsal lithotomy position. Bladder previously em ptied. A gauze sponge was placed in the vagina and attention turned to the abdomen. Incision made in the inferior aspect of the umbilicus. These were all pre-injected with 0.25% Marcaine, and a tot al of 10 cc was used. A Veress needle was placed with ease into the abdomen which was then insuffla matilda with CO2 gas. I put a 5 mm trocar placed in the suprapubic region and a 5 mm in the left lower quadrant. Laparoscope placed. No entrance injury was noted and findings as noted above. Spent a c ouple minutes taking images of the abnormalities and then lysis of adhesions done of the left lower quadrant, releasing the left ovary and removing that strip of adipose tissue from the bladder off th e left ovary and the pelvic sidewall. Next, the posterior cul-de-sac was suctioned out and inspected; no abnormalities noted there. The p araovarian fossa was evaluated and noted to be clear. Then the peritoneal defect was inspected. No discoloration or abnormality; however, I did do a small biopsy of that area and then I cauterized t he edges of that in case this is an endometriosis scarring. Once it was felt that the adhesions had been released and the pelvis had been inspected, and fulguration of what possibly would be an endom etriosis scarring, the abdomen was desufflated and the trocars removed. Once everything was inspect ed, the CO2 gas was released, and then the incision sites were closed with 4-0 Vicryl, gauze sponge removed from the vagina, and the patient was placed in a supine position, awakened in the operating room, and taken to the recovery room in stable condition. Tolerated procedure well. COMPLICATIONS: None. /[id number]/MODL
== END 2017-01-31 11:44 | disposition home or self-care (01) ==
LOC: FSGY 06:24
PROVIDERS: ATTEND Obstetrics & Gynecology Gynecology
PROC: 0UN14ZZ Release Left Ovary, Percutaneous Endoscopic Approach (ICD-10-PCS; principal; 2017-01-31 08:00)
PROC: 0DBW4ZX Excision of Peritoneum, Percutaneous Endoscopic Approach, Diagnostic (ICD-10-PCS; principal; 2017-01-31 08:00)
DX: N73.6 Female pelvic peritoneal adhesions (postinfective) (principal)
CPT/HCPCS: J1100; J1885; J2250; J2405; J2704; J3010